=== PATIENT | female | born 1990 | race African-American/Black ===

== ENCOUNTER 2021-12-01 18:42 | Inpatient (IN) | payer MEDICAID ==
[~2021-12-01] VITALS: Ht 175.3 cm; Wt 175.3 kg
[2021-12-01 20:30] LABS: BASOPHILS % 0.4 % (0.0-2.0); CHLORIDE 106 mEq/L (98-107); HEMATOCRIT. 39.4 % (36.0-48.0); HEMOGLOBIN. 12.5 g/dL (12.0-16.0); LYMPHOCYTES % 16.3 % (20.0-50.0); MEAN CORPUSCULAR VOLUME 75.8 fL (81.0-99.0); MEAN PLATELET VOLUME 9.1 fl (7.4-10.4); MONOCYTES % 2.1 % (2.0-8.0); NEUTROPHILS % 81.2 % (40.0-76.0); PLATELET 279 x1000/uL (130-400); RED CELL DISTRIBUTION WIDTH 15.5 % (11.6-14.6)
[2021-12-01 20:41] LABS: HCG SCREEN NEGATIVE
[2021-12-01 20:45] LABS: ETHANOL BLOOD < 10 mg/dL
[2021-12-01 21:10] LABS: CLARITY URINE CLEAR (CLEAR); COLOR URINE YELLOW (YELLOW); KETONES URINE 1+ (NEGATIVE); LEUKOCYTE ESTERASE URINE 1+ (NEGATIVE); NITRITE URINE NEGATIVE (NEGATIVE); OCCULT BLOOD URINE NEGATIVE (NEGATIVE); PH URINE 8.5 (4.5-8.0); PROTEIN URINE 1+ (NEGATIVE); SPECIFIC GRAVITY URINE 1.024 (1.005-1.030)
[2021-12-01 21:27] LABS: *AMPHETAMINES SCREEN URINE NEGATIVE (NEGATIVE); *BARBITURATES SCREEN URINE NEGATIVE (NEGATIVE); *BENZODIAZEPINES SCREEN URINE NEGATIVE (NEGATIVE); *COCAINE SCREEN URINE NEGATIVE (NEGATIVE); METHADONE URINE SCREEN NEGATIVE (NEGATIVE); OPIATES URINE SCREEN NEGATIVE (NEGATIVE); PHENCYCLIDINE URINE SCREEN NEGATIVE (NEGATIVE)
[2021-12-01 21:30] LABS: CANNABINOID URINE SCREEN PRESUMTIVE POSITIVE (NEGATIVE)
[2021-12-01] MEDS ORDERED: KETOROLAC 30MG/ML VIAL IV STA (21:38)
[2021-12-01] MEDS ORDERED: FAMOTIDINE 20MG/2ML VIAL IV STA (21:38)
[2021-12-01] MEDS ORDERED: ONDANSETRON HCL 4MG/2ML INJ IV STA (21:38)
[2021-12-01] MEDS ORDERED: SODIUM CHLORIDE 0.9% 1,000 ML IV ONE (21:45)
[2021-12-02] MEDS ORDERED: KCL 20MEQ/100ML PREMIX 100 ML IV ONE (01:00)
[2021-12-02] MEDS ORDERED: MAGNESIUM/ALUMINUM HYDROXIDE/SIMETHICONE 30ML UDC PO PRN (02:30)
[2021-12-02] MEDS ORDERED: POTASSIUM CHLORIDE 20MEQ TABLET SR PO NR (02:30)
[2021-12-02] MEDS ORDERED: GUAIFENESIN 200MG/10ML SUGAR FREE UDC PO PRN (02:30)
[2021-12-02] MEDS ORDERED: DOCUSATE SODIUM 100MG CAPSULE PO PRN (02:30)
[2021-12-02 02:34] VITALS: BP 161/91
[2021-12-02] MEDS: DEXT 5%/0.45% NACL KCL 10MEQ/L 1,000 ML IV SCH (03:47)
[2021-12-02] MEDS: LEVOFLOXACIN 500MG PREMIX 100 ML IV SCH (03:47)
[2021-12-02] MEDS: PANTOPRAZOLE SODIUM 40 MG/VIAL IV SCH ×2 (03:48→09:56)
[2021-12-02 04:00] VITALS: BP_SYST 189; BP_SYST 198; BP_DIAS 89; BP_DIAS 99
[2021-12-02 08:00] VITALS: BP 132/61
[2021-12-02] MEDS: AMLODIPINE 10MG TABLET PO SCH (09:56)
[2021-12-02] MEDS: ENOXAPARIN 40MG/0.4ML SYR SUBCUT SCH ×2 (09:57→20:23)
[2021-12-02] MEDS: POTASSIUM CHLORIDE 20MEQ TABLET SR PO SCH (09:58)
[2021-12-02] MEDS: ACETAMINOPHEN 325MG TABLET PO PRN (10:02)
[2021-12-02] MEDS: ONDANSETRON HCL 4MG/2ML INJ IV PRN ×3 (10:02→20:23)
[2021-12-02 12:00] VITALS: BP 180/109
[2021-12-02] MEDS ORDERED: DEXT 5%/0.9% NACL 1,000 ML IV ONE (14:45)
[2021-12-02] MEDS ORDERED: NALOXONE HCL 0.4MG/ML VIAL IV PRN (15:00)
[2021-12-02 16:00] VITALS: BP 162/94
[2021-12-02] MEDS: TRAMADOL 50MG TABLET PO PRN (16:06)
[2021-12-02 20:00] VITALS: BP 168/89
[2021-12-03] VITALS: BP 156/80
[2021-12-03] MEDS: LEVOFLOXACIN 500MG PREMIX 100 ML IV SCH (03:44)
[2021-12-03] MEDS: ONDANSETRON HCL 4MG/2ML INJ IV PRN ×2 (03:44→10:00)
[2021-12-03] MEDS: DEXT 5%/0.45% NACL KCL 10MEQ/L 1,000 ML IV SCH ×4 (03:45→20:00)
[2021-12-03 04:00] VITALS: BP 190/99
[2021-12-03] MEDS: ACETAMINOPHEN 325MG TABLET PO PRN (05:10)
[2021-12-03 07:05] LABS: BASOPHILS % 0.2 % (0.0-2.0); EOSINOPHILS % 0.1 % (0.0-5.0); HEMOGLOBIN. 13.3 g/dL (12.0-16.0); LYMPHOCYTES % 25.6 % (20.0-50.0); MEAN CORPUSCULAR HEMOGLOBIN 24.2 pg (28.0-32.0); MEAN CORPUSCULAR VOLUME 76.6 fL (81.0-99.0); MEAN PLATELET VOLUME 9.3 fl (7.4-10.4); MONOCYTES % 7.3 % (2.0-8.0); NEUTROPHILS % 66.8 % (40.0-76.0); PLATELET 316 x1000/uL (130-400); RED BLOOD CELL COUNT 5.48 mill/uL (4.2-5.4); RED CELL DISTRIBUTION WIDTH 15.5 % (11.6-14.6)
[2021-12-03 07:22] LABS: CHLORIDE 99 mEq/L (98-107)
[2021-12-03 07:30] LABS: HDL CHOLESTEROL 43 mg/dL (40-59); LDL CHOLESTEROL 154 mg/dL (5-100)
[2021-12-03] MEDS ORDERED: HYDRALAZINE 20MG/ML VIAL IV PRN (07:45)
[2021-12-03 08:00] VITALS: BP 159/78
[2021-12-03] MEDS ORDERED: POTASSIUM CHLORIDE 20MEQ TABLET SR PO SCH (08:00)
[2021-12-03] MEDS: AMLODIPINE 10MG TABLET PO SCH (08:49)
[2021-12-03] MEDS: PANTOPRAZOLE SODIUM 40 MG/VIAL IV SCH (08:50)
[2021-12-03] MEDS: TRAMADOL 50MG TABLET PO PRN (08:50)
[2021-12-03] MEDS: ENOXAPARIN 40MG/0.4ML SYR SUBCUT SCH ×2 (08:50→21:17)
[2021-12-03] MEDS: KCL 20MEQ/100ML PREMIX 100 ML IV SCH ×2 (10:12→17:45)
[2021-12-03] MEDS: SODIUM CHLORIDE 0.9% 1,000 ML IV SCH ×2 (10:12→18:00)
[2021-12-03] MEDS: POTASSIUM CHLORIDE 20MEQ TABLET SR PO SCH (10:18)
[2021-12-03 12:00] VITALS: BP 199/105
[2021-12-03 16:00] VITALS: BP 187/122
[2021-12-03] MEDS ORDERED: CLONIDINE 0.2MG TABLET PO SCH (18:00)
[2021-12-03 20:00] VITALS: BP 135/90
[2021-12-04] VITALS: BP 148/96
[2021-12-04] MEDS: LEVOFLOXACIN 500MG PREMIX 100 ML IV SCH (03:14)
[2021-12-04 04:00] VITALS: BP 119/66
[2021-12-04] MEDS: SODIUM CHLORIDE 0.9% 1,000 ML IV SCH ×2 (04:00→13:06)
[2021-12-04 07:42] LABS: BASOPHILS % 0.3 % (0.0-2.0); EOSINOPHILS % 0.5 % (0.0-5.0); HEMATOCRIT. 38.8 % (36.0-48.0); HEMOGLOBIN. 12.3 g/dL (12.0-16.0); LYMPHOCYTES % 46.2 % (20.0-50.0); MEAN CORPUSCULAR HEMOGLOBIN 24.1 pg (28.0-32.0); MEAN CORPUSCULAR VOLUME 76.3 fL (81.0-99.0); MEAN PLATELET VOLUME 9.2 fl (7.4-10.4); MONOCYTES % 7.7 % (2.0-8.0); NEUTROPHILS % 45.3 % (40.0-76.0); PLATELET 279 x1000/uL (130-400); RED BLOOD CELL COUNT 5.08 mill/uL (4.2-5.4); RED CELL DISTRIBUTION WIDTH 15.1 % (11.6-14.6)
[2021-12-04 07:55] LABS: CHLORIDE 103 mEq/L (98-107)
[2021-12-04 08:00] VITALS: BP 115/90
[2021-12-04 08:02] LABS: PHOSPHORUS 3.3 mg/dL (2.5-4.9)
[2021-12-04] MEDS ORDERED: FAMOTIDINE 20MG/2ML VIAL IV SCH (09:00)
[2021-12-04] MEDS: ENOXAPARIN 40MG/0.4ML SYR SUBCUT SCH (09:10)
[2021-12-04] MEDS: POTASSIUM CHLORIDE 20MEQ TABLET SR PO SCH (09:11)
[2021-12-04] MEDS: AMLODIPINE 10MG TABLET PO SCH (09:11)
[2021-12-04] MEDS: DEXT 5%/0.45% NACL KCL 10MEQ/L 1,000 ML IV SCH (09:11)
[2021-12-04] MEDS: KCL 20MEQ/100ML PREMIX 100 ML IV SCH (09:16)
[2021-12-04 12:00] VITALS: BP 137/87
[2021-12-04 15:13] VITALS: BP 137/87
== END 2021-12-04 18:09 | disposition home or self-care (01) | DRG 249 ==
LOC: ER 18:42 → MICUSO 12-02 00:16 → 6WST 12-02 02:00
PROVIDERS: ADMIT Hospitalist; ATTEND Hospitalist
DX: A08.39 Other viral enteritis (principal); E78.5 Hyperlipidemia, unspecified; E87.6 Hypokalemia; I10 Essential (primary) hypertension; N39.0 Urinary tract infection, site not specified; F12.20 Cannabis dependence, uncomplicated; R50.9 Fever, unspecified; Z82.49 Family history of ischemic heart disease and other diseases of the circulatory system; Z83.3 Family history of diabetes mellitus; Z87.891 Personal history of nicotine dependence; R11.2 Nausea with vomiting, unspecified
CPT/HCPCS: 36415; 74176; 80048; 80053; 80061; 80305; 80320; 81003; 83735; 84100; 84703; 85025; 99285; C9113; J0360; J1650; J1885; J1956; J2405; J3480; J3490; J7030; G0480

== ENCOUNTER 2022-06-07 14:52 | Inpatient (IN) | payer MEDICAID, OTHER ==
[~2022-06-07] VITALS: Ht 175.3 cm; Wt 148.9 kg
[2022-06-07] MEDS ORDERED: ONDANSETRON HCL 4MG/2ML INJ IV STA (17:02)
[2022-06-07] MEDS ORDERED: SODIUM CHLORIDE 0.9% 1,000 ML IV ONE (17:15)
[2022-06-07 18:15] LABS: CHLORIDE 102 mEq/L (98-107); HCG SCREEN NEGATIVE
[2022-06-07 18:22] LABS: ETHANOL BLOOD < 10 mg/dL
[2022-06-07] MEDS ORDERED: FAMOTIDINE 20MG/2ML VIAL IV NR (18:30)
[2022-06-07] MEDS ORDERED: POTASSIUM CHLORIDE 20MEQ/PACKET PO NR (18:32)
[2022-06-07 18:36] LABS: BASOPHILS % 0.1 % (0.0-2.0); HEMATOCRIT. 40.6 % (36.0-48.0); HEMOGLOBIN. 12.9 g/dL (12.0-16.0); LYMPHOCYTES % 24.1 % (20.0-50.0); MEAN CORPUSCULAR HEMOGLOBIN 23.2 pg (28.0-32.0); MEAN PLATELET VOLUME 8.9 fl (7.4-10.4); MONOCYTES % 4.6 % (2.0-8.0); NEUTROPHILS % 71.2 % (40.0-76.0); PLATELET 328 x1000/uL (130-400); RED BLOOD CELL COUNT 5.56 mill/uL (4.2-5.4)
[2022-06-07] MEDS: SODIUM CHL 0.9% + KCL 20MEQ/L 1,000 ML IV SCH (18:45)
[2022-06-07] MEDS ORDERED: ONDANSETRON HCL 4MG/2ML INJ IV SCH (20:45)
[2022-06-07 20:47] LABS: CLARITY URINE CLOUDY (CLEAR); COLOR URINE YELLOW (YELLOW); KETONES URINE NEGATIVE (NEGATIVE); LEUKOCYTE ESTERASE URINE 2+ (NEGATIVE); NITRITE URINE NEGATIVE (NEGATIVE); OCCULT BLOOD URINE 1+ (NEGATIVE); PROTEIN URINE 1+ (NEGATIVE); SPECIFIC GRAVITY URINE 1.029 (1.005-1.030)
[2022-06-07 20:57] LABS: *AMPHETAMINES SCREEN URINE NEGATIVE (NEGATIVE); *BARBITURATES SCREEN URINE NEGATIVE (NEGATIVE); *BENZODIAZEPINES SCREEN URINE NEGATIVE (NEGATIVE); *COCAINE SCREEN URINE NEGATIVE (NEGATIVE); METHADONE URINE SCREEN NEGATIVE (NEGATIVE); OPIATES URINE SCREEN NEGATIVE (NEGATIVE); PHENCYCLIDINE URINE SCREEN NEGATIVE (NEGATIVE)
[2022-06-07 21:03] LABS: CANNABINOID URINE SCREEN PRESUMTIVE POSITIVE (NEGATIVE)
[2022-06-07] MEDS ORDERED: METOCLOPRAMIDE HCL 10MG/2ML VIAL IV NR (22:30)
[2022-06-07] MEDS ORDERED: CEPHALEXIN 250MG CAPSULE PO NR (22:30)
[2022-06-07] MEDS ORDERED: POTASSIUM CHLORIDE 20MEQ/PACKET PO SCH (23:00)
[2022-06-08] MEDS ORDERED: MORPHINE SULFATE 2 MG/ML CPJ (NOT FOR IM USE) IV ONE (01:00)
[2022-06-08 01:28] LABS: CHLORIDE 105 mEq/L (98-107)
[2022-06-08] MEDS: SODIUM CHL 0.9% + KCL 20MEQ/L 1,000 ML IV SCH (10:45)
[2022-06-08] MEDS ORDERED: IPRATROPIUM/ALBUTEROL 0.5-3(2.5)MG/3ML NEB HHN PRN (14:30)
[2022-06-08] MEDS ORDERED: ACETAMINOPHEN 325MG TABLET PO PRN (14:30)
[2022-06-08] MEDS ORDERED: CEFTRIAXONE 1 G PREMIX 50 ML IV SCH (14:30)
[2022-06-08] MEDS: SODIUM CHLORIDE 0.9% 1,000 ML IV SCH (18:35)
[2022-06-08 20:00] VITALS: BP 196/93
[2022-06-08 20:10] VITALS: BP 196/93
[2022-06-08] MEDS: DIPHENHYDRAMINE 50MG/ML VIAL IV PRN (22:06)
[2022-06-08] MEDS: CLONIDINE 0.1MG TABLET PO PRN (22:06)
[2022-06-08] MEDS ORDERED: IPRATROPIUM BROMIDE (0.02%) 0.5MG/2.5ML NEB HHN PRN (23:45)
[2022-06-08] MEDS ORDERED: ALBUTEROL (0.083%) 2.5MG/3ML NEB HHN PRN (23:45)
[2022-06-09] VITALS (7 sets, daily range): BP systolic 123–212; BP diastolic 69–127
[2022-06-09] MEDS: SODIUM CHLORIDE 0.9% 1,000 ML IV SCH ×3 (00:45→21:10)
[2022-06-09] MEDS: CLONIDINE 0.1MG TABLET PO PRN ×2 (03:55→21:09)
[2022-06-09] MEDS: DIPHENHYDRAMINE 50MG/ML VIAL IV PRN (03:55)
[2022-06-09] MEDS: ONDANSETRON HCL 4MG/2ML INJ IV PRN ×2 (03:55→10:56)
[2022-06-09] MEDS ORDERED: HYDRALAZINE 20MG/ML VIAL IV PRN (05:00)
[2022-06-09] MEDS: LABETALOL HCL 100MG TABLET PO SCH ×2 (05:24→21:09)
[2022-06-09 07:11] LABS: BASOPHILS % 0.2 % (0.0-2.0); EOSINOPHILS % 0.4 % (0.0-5.0); HEMATOCRIT. 40.6 % (36.0-48.0); LYMPHOCYTES % 34.8 % (20.0-50.0); MEAN CORPUSCULAR HEMOGLOBIN 23.5 pg (28.0-32.0); MEAN CORPUSCULAR VOLUME 73.5 fL (81.0-99.0); MONOCYTES % 7.4 % (2.0-8.0); NEUTROPHILS % 57.2 % (40.0-76.0); PLATELET 252 x1000/uL (130-400); RED BLOOD CELL COUNT 5.53 mill/uL (4.2-5.4); RED CELL DISTRIBUTION WIDTH 15.8 % (11.6-14.6)
[2022-06-09 07:34] LABS: HEPATITIS B SURFACE ANTIGEN NEGATIVE
[2022-06-09 08:37] LABS: CHLORIDE 101 mEq/L (98-107)
[2022-06-09] MEDS ORDERED: POTASSIUM CHLORIDE 20MEQ TABLET SR PO NR (10:30)
[2022-06-09] MEDS ORDERED: METOCLOPRAMIDE HCL 10MG/2ML VIAL IV PRN (12:30)
[2022-06-09] MEDS: CEFTRIAXONE 1,000 MG in DEXTROSE 5% WATER 50 ML IV SCH (15:45)
[2022-06-09 16:37] LABS: PHOSPHORUS 2.8 mg/dL (2.5-4.9)
[2022-06-10] VITALS: BP 144/60
[2022-06-10 04:00] VITALS: BP 144/79
[2022-06-10 06:59] LABS: BASOPHILS % 0.2 % (0.0-2.0); EOSINOPHILS % 0.9 % (0.0-5.0); HEMATOCRIT. 37.5 % (36.0-48.0); LYMPHOCYTES % 49.2 % (20.0-50.0); MEAN CORPUSCULAR HEMOGLOBIN 23.5 pg (28.0-32.0); MEAN CORPUSCULAR VOLUME 73.6 fL (81.0-99.0); MEAN PLATELET VOLUME 8.9 fl (7.4-10.4); MONOCYTES % 6.9 % (2.0-8.0); NEUTROPHILS % 42.8 % (40.0-76.0); PLATELET 254 x1000/uL (130-400); RED CELL DISTRIBUTION WIDTH 15.8 % (11.6-14.6)
[2022-06-10 08:00] VITALS: BP 134/80
[2022-06-10] MEDS: SODIUM CHLORIDE 0.9% 1,000 ML IV SCH (09:07)
[2022-06-10] MEDS: LABETALOL HCL 100MG TABLET PO SCH (09:07)
[2022-06-10 09:40] LABS: CHLORIDE 103 mEq/L (98-107)
[2022-06-10] MEDS ORDERED: NITR-87 MT (09:40)
[2022-06-10] MEDS ORDERED: LABE100T9 PO (09:40)
[2022-06-10] MEDS ORDERED: ONDA4TAB11 PO (09:41)
[2022-06-10 12:00] VITALS: BP 148/106
[2022-06-10] MEDS: CEFTRIAXONE 1,000 MG in DEXTROSE 5% WATER 50 ML IV SCH (14:23)
[2022-06-10] MEDS ORDERED: POTASSIUM CHLORIDE 20MEQ/PACKET PO SCH (15:00)
[2022-06-10] MEDS: CLONIDINE 0.1MG TABLET PO PRN (15:08)
[2022-06-10] MEDS ORDERED: AMLO5TAB88 MT (15:55)
[2022-06-10] MEDS ORDERED: AMLODIPINE 5MG TABLET PO SCH (16:00)
== END 2022-06-10 16:45 | disposition home or self-care (01) | DRG 425 ==
LOC: ER 14:52 → EDBEDREQ 06-08 14:05 → 7EST 06-08 22:34
PROVIDERS: ADMIT Internal Medicine; ATTEND Internal Medicine
DX: E87.6 Hypokalemia (principal); F12.90 Cannabis use, unspecified, uncomplicated; Z87.891 Personal history of nicotine dependence
CPT/HCPCS: 36415; 80048; 80053; 80305; 80320; 81003; 83735; 84100; 84132; 84484; 84703; 85025; 86803; 87340; 93005; 93970; 99285; J0360; J0696; J1200; J2270; J2405; J2765; J3480; J3490; J7030; J7060; G0480